=== PATIENT | female | born 1955 | race Two or more races ===

== ENCOUNTER 2018-10-12 22:32 | Emergency (ER) | payer OTHER ==
[~2018-10-12] VITALS: Ht 160 cm; Wt 70.3 kg
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
[2018-10-12] MEDS ORDERED: HYDROCODONE/APAP 5/325MG 1 EACH TABLET ONE (22:52)
[2018-10-12] MEDS ORDERED: HYDROCODONE/APAP 5/325MG 1 EACH TABLET PO ONE (23:00)
--- NOTE | 2018-10-12 23:05 | NUR ---
RADIOLOGY AT BEDSIDE FOR XRAY
[2018-10-13 01:41] VITALS: BP 133/80
--- NOTE | 2018-10-13 02:38 | NUR ---
Patient discharged to home in stable condition. Written and verbal after care instructions given. Patient verbalizes understanding of instruction. PT AMBULATORY WITH STEADY GAIT ACCOMPANIED BY FAMILY.
== END 2018-10-13 02:39 | disposition home or self-care (01) ==
LOC: ER 23:13
DX: S52.572A Other intraarticular fracture of lower end of left radius, initial encounter for closed fracture (principal); W01.198A Fall on same level from slipping, tripping and stumbling with subsequent striking against other object, initial encounter; Y93.01 Activity, walking, marching and hiking; Y92.89 Other specified places as the place of occurrence of the external cause; Y99.8 Other external cause status
CPT/HCPCS: 73110